=== PATIENT | male | born 1975 | race Caucasian/White ===

== ENCOUNTER → 2017-05-02 | Outpatient (CLI) | payer MEDICARE, OTHER | LOC: CT 10:27 | DX: Z51.11 Encounter for antineoplastic chemotherapy (principal); C81.28 Mixed cellularity Hodgkin lymphoma, lymph nodes of multiple sites; R63.4 Abnormal weight loss; D61.811 Other drug-induced pancytopenia | CPT/HCPCS: 71260; 74160; J7050; Q9962; Q9965 ==